=== PATIENT | male | born 1985 | race American Indian/Alaskan Native ===

== ENCOUNTER 2016-08-08 06:10 | Inpatient (IN) | payer MEDICAID, OTHER ==
[2016-08-08] MEDS ORDERED: Sodium Chloride 0.9% 1,000 ML IV STA ×2 (07:38→09:04)
[2016-08-08] MEDS ORDERED: Alum-Mag Hydrox-Simethicone Susp (30 mL) PO STA (07:39)
[2016-08-08 07:52] LABS: BASO % 0.1 % (0.0-2.0); EOS # 0.1 K/uL (0.0-0.7); EOS % 0.4 % (0.0-4.0); HEMATOCRIT 42.9 % (35.0-51.0); LYMPH # 0.4 K/uL (1.0-4.3); LYMPH % 2.9 % (20.0-40.0); MEAN CELL VOLUME 70.3 fL (80.0-94.0); MEAN CORPUSCULAR HEMOGLOBIN 22.2 pg (27.0-31.0); MEAN CORPUSCULAR HGB CONC 31.5 g/dL (33.0-37.0); MEAN PLATELET VOLUME 9.4 fL (7.2-11.7); MONO # 0.4 K/uL (0.0-0.8); MONO % 3.1 % (0.0-10.0); PLATELET COUNT 239 K/uL (130-400); RED CELL DISTRIBUTION WIDTH 13.8 % (11.5-14.5); WHITE BLOOD COUNT 13.3 K/uL (4.8-10.8)
[2016-08-08 08:04] LABS: CHLORIDE 103 mmol/L (98-107); POTASSIUM 3.2 mmol/L (3.6-5.2); SODIUM 141 mmol/L (132-148)
[2016-08-08] MEDS ORDERED: Aluminum Hydroxide/Magnesium Hydroxide Susp (30 mL) ONE (08:05)
[2016-08-08] MEDS ORDERED: Sodium Chloride 0.9% 1,000 ML ONE ×2 (08:05→09:14)
[2016-08-08 08:06] LABS: ALKALINE PHOSPHATASE 104 U/L (38-126); AST/SGOT 23 U/L (17-59); BILIRUBIN,TOTAL 0.9 mg/dL (0.2-1.3); BLOOD UREA NITROGEN 11 mg/dL (9-20); CARBON DIOXIDE 29 mmol/L (22-30); GFR AFRICAN-AMERICAN > 60; TOTAL PROTEIN 7.4 g/dL (6.3-8.3)
[2016-08-08 08:07] LABS: ALCOHOL SERUM < 10 mg/dl (0-10); ALT/SGPT 21 U/L (21-72); CALCIUM 9.2 mg/dl (8.6-10.4); GLUCOSE,RANDOM 113 mg/dL (75-110)
--- NOTE | 2016-08-08 08:29 | C.PDOC ---
History Of Present Illness 31 y/o M c history of chronic back pain radiating down leg p/w vomiting since this morning. Patient states he has had this vomiting before and has been told that it is from gastric ulcers but he states he has never followed up with gastroenterology and is on no medication for it. Denies fever, chills, chest pain, dyspnea, diarrhea, dysuria. Time Seen by Provider: 08/08/16 07:15 Chief Complaint (Nursing): Abdominal Pain Past Medical History Vital Signs: Last Vital Signs Temp 99.4 F 08/08/16 11:35 Pulse 83 08/08/16 11:35 Resp 18 08/08/16 11:35 BP 101/64 08/08/16 11:35 Pulse Ox 99 08/08/16 11:35 - Medical History PMH: Denies: Diabetes Family History: States: No Known Family Hx - Social History Hx Tobacco Use: Yes Hx Alcohol Use: No Hx Substance Use: Yes - Immunization History Hx Tetanus Toxoid Vaccination: Yes Hx Influenza Vaccination: Yes Hx Pneumococcal Vaccination: Yes Review Of Systems Except As Marked, All Systems Reviewed And Found Negative. Constitutional: Negative for: Fever Cardiovascular: Negative for: Chest Pain Physical Exam - Physical Exam Additional Physical Exam Comments: Constitutional: No acute distress. Head: Normocephalic. Atraumatic. Neck: Supple. Cardiovascular: Regular rate. Radial pulse 2+ bilaterally. Chest: No tenderness. Respiratory: Clear to auscultation bilaterally. GI: Soft. Epigastric tenderness without rebound or guarding. Nondistended. Back: No CVA tenderness. Musculoskeletal: No tenderness or swelling of extremities. Skin: No rash. Neurologic: Alert, no focal deficit. ED Course And Treatment - Laboratory Results Result Diagrams: 08/08/16 07:47 08/08/16 07:47 O2 Sat by Pulse Oximetry: 99 Medical Decision Making Medical Decision Making: Check labs, hydrate, Zofran, pepcid, maalox, reassess. ED OBSERVATION Date of observation admission: 08/08/16 Time of observation admission: 08:40 - Observation admission statement Patient is being placed in observation because:: abdominal pain - Goals of Observation Goals of observation are:: monitoring; pending CT - Progress Note Progress Note: [address] 1240 FINDINGS: Lower thorax: No acute findings. ABDOMEN: Liver: Unremarkable. No mass. Gallbladder and bile ducts: Unremarkable. No calcified stones. No ductal dilation. Pancreas: Hypodense nodule of 1.5 x 2.5 cm between head of pancreas and gastroduodenal junction. No mass. No ductal dilation. Spleen: Unremarkable. No splenomegaly. Adrenals: Unremarkable. No mass. Kidneys and ureters: 1 cm left renal cyst. No hydronephrosis. Stomach and bowel: No gastric wall thickening or edema. No dilatation of small or large bowel. No mucosal thickening. Appendix: Normal. PELVIS: Bladder: Under distended. No mass. Reproductive: Unremarkable as visualized. ABDOMEN and PELVIS: Intraperitoneal space: Unremarkable. No free air. No significant fluid collection. Bones/joints: No acute fracture. Soft tissues: Unremarkable. Vasculature: Unremarkable. No abdominal aortic aneurysm. Lymph nodes: No enlarged lymph nodes. IMPRESSION: 1. Indeterminate nodule between proximal duodenum and head of pancreas, differential considerations of lymph node, duodenal diverticulum. 2. No acute inflammation or intestinal obstruction Patient with bandemia as well as evidence of UTI on UA. Will start on Ciprofloxacin, hydrate, and keep for observation. Dr. Morocho accepts patient to hospitalist service. Disposition Discussed With : Ilan Morocho Doctor Will See Patient In The: Hospital - Disposition Disposition: HOSPITALIZED Disposition Time: 12:42 Condition: FAIR - Clinical Impression Clinical Impression: Vomiting, Bandemia, UTI (urinary tract infection)
[2016-08-08 08:57] LABS: NEUTROPHIL 83 % (50-75); TOTAL CELLS COUNTED 100
[2016-08-08] MEDS ORDERED: Piperacill/Tazo 4.5gm in Dex 4.5 GM/100 ML BAG IVPB STA (09:04)
[2016-08-08] MEDS ORDERED: Iodixanol 320 MG/ML 100 ML BOTTLE IV ONE (09:47)
[2016-08-08 10:06] LABS: RBC URINE 2 /hpf (0-3); URINE BILIRUBIN NEGATIVE (NEGATIVE); URINE BLOOD NEGATIVE (NEGATIVE); URINE COLOR Amber (YELLOW); URINE GLUCOSE (UA) NORMAL (Normal); URINE KETONE 1+ mg/dL (NEGATIVE); URINE LEUKOCYTE ESTERASE NEG Leu/uL (Negative); URINE PROTEIN 2+ mg/dL (NEGATIVE); WBC URINE 7 /hpf (0-5)
[2016-08-08 10:56] LABS: VENOUS BLOOD GAS BASE EXCESS -0.4 mmol/L (0.0-2.0); VENOUS BLOOD GAS PCO2 42 mmHg (40-60); VENOUS BLOOD PH 7.38 (7.32-7.43)
--- NOTE | 2016-08-08 12:42 | CT ---
EXAM: CT Abdomen and Pelvis With Intravenous Contrast CLINICAL HISTORY: 31 years old, male; Pain; Abdominal pain; Other: Ucler; Patient HX: Ulcer; Additional info: Abdominal pain, vomiting TECHNIQUE: Axial computed tomography images of the abdomen and pelvis with intravenous contrast. This CT exam was performed using one or more of the following dose reduction techniques: automated exposure control, adjustment of the mA and/or kV according to patient size, and/or use of iterative reconstruction technique. Coronal and sagittal reformatted images were created and reviewed. CONTRAST: 100 mL of visipaque administered intravenously. EXAM DATE/TIME: 08/08/2016 8:39 AM COMPARISON: No relevant prior studies available. FINDINGS: Lower thorax: No acute findings. ABDOMEN: Liver: Unremarkable. No mass. Gallbladder and bile ducts: Unremarkable. No calcified stones. No ductal dilation. Pancreas: Hypodense nodule of 1.5 x 2.5 cm between head of pancreas and gastroduodenal junction. No mass. No ductal dilation. Spleen: Unremarkable. No splenomegaly. Adrenals: Unremarkable. No mass. Kidneys and ureters: 1 cm left renal cyst. No hydronephrosis. Stomach and bowel: No gastric wall thickening or edema. No dilatation of small or large bowel. No mucosal thickening. Appendix: Normal. PELVIS: Bladder: Under distended. No mass. Reproductive: Unremarkable as visualized. ABDOMEN and PELVIS: Intraperitoneal space: Unremarkable. No free air. No significant fluid collection. Bones/joints: No acute fracture. Soft tissues: Unremarkable. Vasculature: Unremarkable. No abdominal aortic aneurysm. Lymph nodes: No enlarged lymph nodes. IMPRESSION: 1. Indeterminate nodule between proximal duodenum and head of pancreas, differential considerations of lymph node, duodenal diverticulum. 2. No acute inflammation or intestinal obstruction.
[2016-08-08] MEDS ORDERED: Ciprofloxacin 400mg/200ml D5W 400 MG/200 ML BAG IVPB STA (13:00)
[2016-08-08] MEDS ORDERED: Ciprofloxacin 400mg/200ml D5W 400 MG/200 ML BAG IVPB ONE (13:23)
[2016-08-08] MEDS ORDERED: Potassium Chloride 20 mEq ER Tab PO ONE (15:15)
[2016-08-08 15:36] LABS: MAGNESIUM 1.8 mg/dL (1.6-2.3)
[2016-08-08] MEDS: Sodium Chloride 0.9% 1,000 ML IV SCH (16:15)
[2016-08-08 18:08] LABS: RBC URINE 5 /hpf (0-3); URINE BACTERIA RARE (<OCC); URINE BILIRUBIN NEGATIVE (NEGATIVE); URINE BLOOD NEGATIVE (NEGATIVE); URINE COLOR Yellow (YELLOW); URINE GLUCOSE (UA) NORMAL (Normal); URINE KETONE NEGATIVE (NEGATIVE); URINE LEUKOCYTE ESTERASE NEG Leu/uL (Negative); URINE PROTEIN NEGATIVE (NEGATIVE); WBC URINE < 1 /hpf (0-5)
--- NOTE | 2016-08-08 18:18 | CP.PCM.HP ---
<DeviOctavia L. - Last Filed: 08/08/16 18:01> History of Present Illness - History of Present Illness History of Present Illness: CC: abdominal and back pain with vomiting Patient with PMH of gastric ulcer 8 years ago (which he signed out of the hospital AMA for) comes to the ER after 2 days of abdominal and low back pain. Patient started vomiting this morning after drinking orange juice and decided to come to the ER. Patient describes that the vomit first looked like orange juice and then became brown/ green and bitter in taste. Patient has had some cough, phlegm, and sweats for the past 5 days. Two days ago patient started to have diarrhea after eating [place] food. Patient describes the abdominal pain as squeezing and tight starting in the epigastric region and moving downward. He rates the pain 7/10. Patient has had low back pain for 2 years after an accident. Patient unsure if the back pain is related to the new abdominal pain. Patient went to [place] one month ago and got a new tattoo. Patient denies headache, blurry vision, sore throat, dysuria, urinary frequency, or rash. PMD: none PMhx: gastric ulcer about 8 years ago PSurg: none Social hx: marijuana- 5-10 blunts/ day for 20 years cigarettes: 2-3/ day for 20 years alcohol: hx of heavy drinking which stopped about 3 years ago drugs: none Meds: none Famhx: Mom of TB, Brother- HTN, Aunt- Brain cancer Allergies: NKDA Present on Admission - Present on Admission Any Indicators Present on Admission: No Review of Systems - Constitutional Constitutional: Excessive Sweating, Fatigue, Night Sweats, Weakness. absent: Chills - EENT Eyes: absent: Blurred Vision, Change in Vision, Diplopia Nose/Mouth/Throat: absent: Nasal Congestion, Sore Throat - Cardiovascular Cardiovascular: absent: Chest Pain, Leg Edema, Palpitations, Pedal Edema - Respiratory Respiratory: Cough (minimal cough with phlegm ), Pain on Inspiration (pain in abdomen on deep inspiration ). absent: Dyspnea - Gastrointestinal Gastrointestinal: Abdominal Pain, Change in Bowel Habits, Diarrhea, Vomiting Additional comments: vomiting x 10 times - Genitourinary Genitourinary: absent: Change in Urinary Stream, Difficulty Urinating, Hematuria , Urinary Frequency, Urinary Hesitance - Musculoskeletal Musculoskeletal: Back Pain, Stiffness. absent: Joint Swelling - Integumentary Integumentary: absent: Lesions, Rash, Swelling - Neurological Neurological: absent: Abnormal Gait, Confusion, Headaches, Syncope - Hematologic/Lymphatic Hematologic: absent: Easy Bleeding, Easy Bruising Past Patient History - Infectious Disease Hx of Infectious Diseases: None - Past Social History Smoking Status: Heavy Smoker > 10 Cigarettes Daily - MUSCULOSKELETAL/RHEUMATOLOGICAL Hx Back Pain: Yes - PSYCHIATRIC Hx Substance Use: Yes - SURGICAL HISTORY Hx Surgeries: No - ANESTHESIA Hx Anesthesia: No Hx Anesthesia Reactions: No Meds Allergies/Adverse Reactions: Allergies Allergy/AdvReac Type Severity Reaction Status Date / Time No Known Allergies Allergy Verified 06/15/15 23:01 Physical Exam - Constitutional Appears: Non-toxic, No Acute Distress - Head Exam Head Exam: ATRAUMATIC, NORMAL INSPECTION, NORMOCEPHALIC - Eye Exam Eye Exam: EOMI, Normal appearance, PERRL - Neck Exam Neck exam: Positive for: Normal Inspection - Respiratory Exam Respiratory Exam: Clear to Auscultation Bilateral, NORMAL BREATHING PATTERN. absent: Rales, Rhonchi, Wheezes, Stridor - Cardiovascular Exam Cardiovascular Exam: REGULAR RHYTHM, RRR. absent: Gallop, Rubs - GI/Abdominal Exam GI & Abdominal Exam: Normal Bowel Sounds, Soft. absent: Distended, Firm, Guarding, Tenderness - Extremities Exam Extremities exam: Positive for: full ROM, normal inspection. Negative for: pedal edema, tenderness - Back Exam Back exam: NORMAL INSPECTION, paraspinal tenderness, tenderness. absent: rash noted - Neurological Exam Neurological exam: Alert, Oriented x3 - Psychiatric Exam Psychiatric exam: Normal Affect, Normal Mood - Skin Skin Exam: Normal Color, Warm Results - Vital Signs Recent Vital Signs: Last Vital Signs Temp 101.6 F H 08/08/16 16:00 Pulse 88 08/08/16 16:00 Resp 20 08/08/16 16:00 BP 104/71 08/08/16 16:00 Pulse Ox 98 08/08/16 16:00 - Labs Result Diagrams: 08/08/16 07:47 08/08/16 07:47 Labs: Laboratory Results - last 24 hr 08/08/16 08/08/16 08/08/16 09:33 10:45 17:37 pO2 45 VBG pH 7.38 VBG pCO2 42 VBG HCO3 24.1 VBG Total CO2 26.1 VBG O2 Sat (Calc) 84.5 H VBG Base Excess -0.4 L VBG Potassium 3.3 L Sodium 139.0 Chloride 107.0 Glucose 99 Lactate 1.3 Magnesium 1.9 Venous Blood Potassium 3.3 L Urine Color [place] Urine Clarity Hazy Urine pH 6.0 Ur Specific [place] 1.027 Urine Protein 2+ H Urine Glucose (UA) Normal Urine Ketones 1+ H Urine Blood Negative Urine Nitrate Negative Urine Bilirubin Negative Urine Urobilinogen 4.0 Ur Leukocyte Esterase Neg Urine WBC (Auto) 7 H Urine RBC (Auto) 2 Ur Squamous Epith Cells < 1 Hyaline Casts 3-5 H Assessment & Plan (1) Abdominal pain Assessment and Plan: Clear liquid diet Blood culture Hep panel HIV test Lipase Pepcid CT with oral contrast Status: Acute (2) Vomiting Assessment and Plan: NS 125 cc/hr CLD Zofran 4 mg IVP Q6H PRN Status: Acute (3) UTI (urinary tract infection) Assessment and Plan: Urine culture Repeat UA Cipro 400 mg BID Status: Acute (4) Bandemia Assessment and Plan: Urine Culture Blood Culture CXray Status: Acute (5) Prophylactic measure Assessment and Plan: Pepcid 20 mg IVP Q12 SCDs Status: Acute Decision To Admit - . Bed Request Type: Regular <Luis Nava - Last Filed: 08/10/16 13:55> Results - Vital Signs Recent Vital Signs: Last Vital Signs Temp 98.3 F 08/10/16 08:00 Pulse 61 08/10/16 08:00 Resp 20 08/10/16 08:00 BP 119/75 08/10/16 08:00 Pulse Ox 99 08/10/16 08:00 - Labs Result Diagrams: 08/10/16 09:03 08/10/16 09:03 Labs: Laboratory Results - last 24 hr 08/09/16 08/10/16 08/10/16 17:11 09:03 09:03 WBC 6.5 RBC 5.96 H Hgb 13.1 Hct 41.4 MCV 69.5 L MCH 21.9 L MCHC 31.5 L RDW 13.7 Plt Count 265 MPV 10.2 Neut % (Auto) 60.4 Lymph % (Auto) 29.5 Mclennan % (Auto) 7.8 Eos % (Auto) 1.4 Baso % (Auto) 0.9 Neut # 3.9 Lymph # 1.9 Mclennan # 0.5 Eos # 0.1 Baso # 0.1 Sodium 138 Potassium 3.6 Chloride 100 Carbon Dioxide 27 Anion Gap 15 BUN 2 L Creatinine 0.7 L Est GFR ( Amer) > 60 Est GFR (Non-Af Amer) > 60 Random Glucose 92 Calcium 8.9 Phosphorus 2.7 Magnesium 1.9 Total Bilirubin 0.7 AST 21 ALT 23 Alkaline Phosphatase 83 Total Protein 7.3 Albumin 3.6 Globulin 3.7 Albumin/Globulin Ratio 1.0 Stool Occult Blood Positive H Attending/Attestation - Attestation I have personally seen and examined this patient.: Yes I have fully participated in the care of the patient.: Yes I have reviewed all pertinent clinical information: Yes Notes (Text): Patient seen and examined with the resident. Agree with residents evaluation, assessment and plan. (1) Abdominal pain ? unclear etiology with nausea, vomiting and diarrhea Epigastric pain in setting of history of ulcer disease no perforation seen (2) Vomiting that is causing dehydration (3) Bandemia (4) Dehydration. (5) ? UTI repeat UA possible contaminant
[2016-08-08] MEDS ORDERED: Iohexol 240 (50 ml) PO ONE (19:15)
[2016-08-09] MEDS: Ciprofloxacin 400mg/200ml D5W 400 MG/200 ML BAG IVPB SCH ×2 (00:36→13:31)
[2016-08-09] MEDS ORDERED: Ciprofloxacin 400mg/200ml D5W 400 MG/200 ML BAG IVPB SCH (03:00)
--- NOTE | 2016-08-09 09:33 | CP.PCM.PN ---
Subjective - Date & Time of Evaluation Date of Evaluation: 08/09/16 Time of Evaluation: 09:25 - Subjective Subjective: Medical Attending Note Follow-up: Epigastric Pain, History of Ulcer, Smoker, Urinary Tract Infection Patient seen and examined. Patient reports two days ago, he had [place] food and had diarrhea. Patient unclear if he saw blood or not because he was eatting "red tips". Patient reports he is a heavy smoker, reports he was stressed because he got just and concerned about to pay for the costs. Patient reports at [facility]? he had endoscopy about 8 years ago where he has ulcer and another abnormalities? but he got scared and left against medical advice and has not seen a doctor because he has been without insurance. Patient reports he has low back pain, which he takes Motrin and has received a shot in the back. Patient denies fever since coming up from the emergency room, denies chills, denies chest pain, denies cough, denies nausea, reports epigastric pain in the base of his belly, denies vomitting, reports diarrhea, 1 episode this morning, reports stool appears brown, denies BRBPR, denies dysuria, denies hematuria and reports body aches and pains. Objective - Vital Signs/Intake and Output Vital Signs (last 24 hours): Temp Pulse Resp BP Pulse Ox 98.8 F 81 20 112/61 99 08/09/16 08:00 08/09/16 08:00 08/09/16 08:00 08/09/16 08:00 08/09/16 08:00 Intake and Output: 08/09/16 08/09/16 06:59 18:59 Intake Total 1620 Balance 1620 - Medications Medications: Current Medications Acetaminophen (Tylenol 325mg Tab) 650 mg PO Q6 PRN PRN Reason: Fever >100.4 F Last Admin: 08/08/16 18:23 Dose: 650 mg Famotidine (Pepcid) 20 mg IVP Q12 [facility] Last Admin: 08/08/16 21:26 Dose: 20 mg Sodium Chloride (Sodium Chloride 0.9%) 1,000 mls @ 150 mls/hr IV .Q6H40M [facility] Last Admin: 08/08/16 16:15 Dose: 150 mls/hr Ciprofloxacin (Cipro 400mg/200ml Dsw) 400 mg in 200 mls @ 133 mls/hr IVPB Q12H [facility] Last Admin: 08/09/16 00:36 Dose: 133 mls/hr Ondansetron HCl (Zofran Inj) 4 mg IVP Q6H PRN PRN Reason: Nausea/Vomiting Pneumococcal Polyvalent Vaccine (Pneumovax 23 Vaccine) 0.5 ml IM .ONCE ONE Stop: 08/10/16 10:01 - Constitutional Appears: Non-toxic, No Acute Distress - Head Exam Head Exam: NORMAL INSPECTION - Eye Exam Eye Exam: EOMI - ENT Exam ENT Exam: Mucous Membranes Moist - Respiratory Exam Respiratory Exam: Clear to Ausculation Bilateral, NORMAL BREATHING PATTERN. absent: Rales, Rhonchi, Wheezes - Cardiovascular Exam Cardiovascular Exam: REGULAR RHYTHM, +S1, +S2 - GI/Abdominal Exam GI & Abdominal Exam: Soft, Tenderness (epigastric, mild), Normal Bowel Sounds. absent: Guarding, Rigid, Mass, Rebound - Back Exam Back Exam: absent: CVA tenderness (L), CVA tenderness (R) - Neurological Exam Neurological Exam: Alert, Awake, Oriented x3 - Psychiatric Exam Psychiatric exam: Normal Affect, Normal Mood - Skin Skin Exam: Dry, Normal Color, Warm Assessment and Plan (1) SIRS (systemic inflammatory response syndrome) Assessment & Plan: Febrile (101.6F) WBC: 13.6 Bands: 10% pending Blood culture and Urine culture Ciprofloxacin 400mg IV Q 12hour (active since 08/09/16) Pending blood work today Status: Acute (2) Epigastric abdominal pain Assessment & Plan: CT Abdomen/Pelvis (08/08/16): indetermine nodule (1.5 X2.5 cm) between proximal duodendum and head of pancreas, differential considerations of lymph node, duodenal diverticulum. No acute inflammation or intestinal obstruction Pending report of CT abdomen/Pelvis GI (Dr. Hall) consult-->history of gastric ulcer, epigastric abdomen pain, current smoker, and questionable blood stool Etiologies: Gastritis vs Gastroenteritis Patient is current smoker, history of ulcer, but also recently ate [place] food about two days ago. Patient reports abnormality associated in prior endoscopy 8 years ago, but left against medical advice. Ordered for occult blood, ova and parasite, stool culture Protonix 40mg IV q daily Status: Acute (3) History of gastric ulcer Assessment & Plan: History of gastric ulcer Endoscopy about 8 years ago Current smoker Status: Chronic (4) UTI (urinary tract infection) Assessment & Plan: 08/08/16 UA: pyuria; UA: hematuria pending urine culture Status: Acute (5) Diarrhea Assessment & Plan: pending stool ova and parasite, culture, and occult blood Patient recently had slovenian food about 2 days ago Status: Acute (6) Prophylactic measure Assessment & Plan: Pepcid 20mg IV Q 12hour for GI ppx Zofran 4mg IV Q6 hour PRN nausea SCDS b/l NS 150 cc/hr Status: Acute
[2016-08-09] MEDS: Sodium Chloride 0.9% 1,000 ML IV SCH ×3 (10:23→18:00)
--- NOTE | 2016-08-09 10:56 | CP.PCM.CON ---
History of Present Illness - History of Present Illness History of Present Illness: CC: Abdominal pain HPI: GI Service consult requested on this 31 year old man admitted with acute abdominal pain, fever, and leukocytosis. Patient developed upper and mid abdominal pain, severe, 2 days ago. He has been very stressed emotionally because he recently , and has been smoking a lot of marijuana. He also takes Motrin as needed for chronic back pains, but not every day and he uses it sparingly. Patient has presented several occasions to [facility] ER for abdominal pains. Patient reports diarrhea for the past 2 days, and diaphoresis without chills. He lost weight, decreased appetite. Patient was told he had ulcers on EGD 8 years ago at [facility] but then signed out AMA, and "never took care of it". CT on this admission shows nodular lesion at junction of duodenum and head of pancreas measuring 2 cm, and differentila dx by radiologist is lymph node or duodenal diverticulum. patient denies bright red rectal bleeding or melena. Review of Systems - Constitutional Constitutional: Excessive Sweating, Night Sweats, Weight Loss - EENT Eyes: absent: Change in Vision - Cardiovascular Cardiovascular: absent: Chest Pain - Respiratory Respiratory: absent: Cough, Dyspnea - Gastrointestinal Gastrointestinal: As Per HPI - Genitourinary Genitourinary: absent: Difficulty Urinating, Dysuria - Musculoskeletal Musculoskeletal: Back Pain - Integumentary Integumentary: absent: Bleeding Lesions, Jaundice - Neurological Neurological: absent: Vertigo - Psychiatric Psychiatric: Anxiety - Endocrine Endocrine: Fatigue. absent: Palpitations - Hematologic/Lymphatic Hematologic: absent: Easy Bleeding Past Patient History - Infectious Disease Hx of Infectious Diseases: None - Past Medical History & Family History Past Medical History?: Yes - Past Social History Smoking Status: Heavy Smoker > 10 Cigarettes Daily Alcohol: None Drugs: Cannabis - CARDIAC Hx Cardiac Disorders: No - PULMONARY Hx Respiratory Disorders: No - MUSCULOSKELETAL/RHEUMATOLOGICAL Hx Back Pain: Yes - PSYCHIATRIC Hx Substance Use: Yes - SURGICAL HISTORY Hx Surgeries: No - ANESTHESIA Hx Anesthesia: No Hx Anesthesia Reactions: No Meds Allergies/Adverse Reactions: Allergies Allergy/AdvReac Type Severity Reaction Status Date / Time No Known Allergies Allergy Verified 06/15/15 23:01 - Medications Medications: Current Medications Acetaminophen (Tylenol 325mg Tab) 650 mg PO Q6 PRN PRN Reason: Fever >100.4 F Last Admin: 08/08/16 18:23 Dose: 650 mg Famotidine (Pepcid) 20 mg IVP Q12 [facility] Last Admin: 08/09/16 10:23 Dose: 20 mg Sodium Chloride (Sodium Chloride 0.9%) 1,000 mls @ 150 mls/hr IV .Q6H40M [facility] Last Admin: 08/09/16 10:23 Dose: 150 mls/hr Ciprofloxacin (Cipro 400mg/200ml Dsw) 400 mg in 200 mls @ 133 mls/hr IVPB Q12H [facility] Last Admin: 08/09/16 00:36 Dose: 133 mls/hr Ondansetron HCl (Zofran Inj) 4 mg IVP Q6H PRN PRN Reason: Nausea/Vomiting Pneumococcal Polyvalent Vaccine (Pneumovax 23 Vaccine) 0.5 ml IM .ONCE ONE Stop: 08/10/16 10:01 Physical Exam - Constitutional Appears: Well, No Acute Distress - Head Exam Head Exam: ATRAUMATIC, NORMOCEPHALIC - Eye Exam Eye Exam: Normal appearance. absent: Scleral icterus - ENT Exam ENT Exam: Normal Exam - Neck Exam Neck exam: Positive for: Normal Inspection - Respiratory Exam Respiratory Exam: Clear to Auscultation Bilateral - Cardiovascular Exam Cardiovascular Exam: REGULAR RHYTHM - GI/Abdominal Exam GI & Abdominal Exam: Soft, Tenderness. absent: Distended, Mass, Organomegaly ( Epigastric tenderness), Rebound - Rectal Exam Rectal Exam: Deferred - Extremities Exam Extremities exam: Positive for: normal inspection - Back Exam Back exam: NORMAL INSPECTION - Neurological Exam Neurological exam: Oriented x3 - Psychiatric Exam Psychiatric exam: Anxious Results - Vital Signs Recent Vital Signs: Last Vital Signs Temp 98.8 F 08/09/16 08:00 Pulse 81 08/09/16 08:00 Resp 20 08/09/16 08:00 BP 112/61 08/09/16 08:00 Pulse Ox 99 08/09/16 08:00 - Labs Result Diagrams: 08/08/16 07:47 08/08/16 07:47 Labs: Laboratory Results - last 24 hr 08/08/16 08/08/16 08/08/16 10:45 17:37 17:52 pO2 45 VBG pH 7.38 VBG pCO2 42 VBG HCO3 24.1 VBG Total CO2 26.1 VBG O2 Sat (Calc) 84.5 H VBG Base Excess -0.4 L VBG Potassium 3.3 L Sodium 139.0 Chloride 107.0 Glucose 99 Lactate 1.3 Magnesium 1.9 Lipase Venous Blood Potassium 3.3 L Urine Color Yellow Urine Clarity Clear Urine pH 7.0 Ur Specific [place] 1.053 H Urine Protein Negative Urine Glucose (UA) Normal Urine Ketones Negative Urine Blood Negative Urine Nitrate Negative Urine Bilirubin Negative Urine Urobilinogen 2.0 Ur Leukocyte Esterase Neg Urine WBC (Auto) < 1 Urine RBC (Auto) 5 H Urine Bacteria Rare Hepatitis A IgM Ab Hep Bs Antigen Hep B Core IgM Ab Hepatitis C Antibody HIV 1&2 Antibody Screen 08/09/16 08/09/16 08/09/16 07:11 07:11 07:11 pO2 VBG pH VBG pCO2 VBG HCO3 VBG Total CO2 VBG O2 Sat (Calc) VBG Base Excess VBG Potassium Sodium Chloride Glucose Lactate Magnesium Lipase 48 Venous Blood Potassium Urine Color Urine Clarity Urine pH Ur Specific [place] Urine Protein Urine Glucose (UA) Urine Ketones Urine Blood Urine Nitrate Urine Bilirubin Urine Urobilinogen Ur Leukocyte Esterase Urine WBC (Auto) Urine RBC (Auto) Urine Bacteria Hepatitis A IgM Ab Negative Hep Bs Antigen Negative Hep B Core IgM Ab Negative Hepatitis C Antibody Negative HIV 1&2 Antibody Screen Negative Assessment & Plan (1) Abdominal pain Assessment and Plan: Suspect Duodenal ulcer, recurrent. CT finding may represent duodenal ulcer or diverticulum, lymph node less likely with this clinical presentation Rec: Protonix, check for h Pylori, upper GI series vs. EGD (elective). Need to monitor for perforation of ulcer Status: Acute (2) Diarrhea Assessment and Plan: perhaps fever related to gastroenteritis. No other source of infection apparent Rec: Check stool studies, monitor CBC. Status: Acute - Date & Time Date: 08/09/16 Time: 11:02
[2016-08-09 12:23] LABS: BASO % 0.3 % (0.0-2.0); EOS # 0.1 K/uL (0.0-0.7); EOS % 1.7 % (0.0-4.0); HEMATOCRIT 36.5 % (35.0-51.0); LYMPH # 1.7 K/uL (1.0-4.3); LYMPH % 23.6 % (20.0-40.0); MEAN CELL VOLUME 70.3 fL (80.0-94.0); MEAN CORPUSCULAR HGB CONC 31.4 g/dL (33.0-37.0); MEAN PLATELET VOLUME 9.5 fL (7.2-11.7); MONO # 0.5 K/uL (0.0-0.8); MONO % 7.2 % (0.0-10.0); NRBC % 0.1 % (0.0-2.0); RED CELL DISTRIBUTION WIDTH 13.9 % (11.5-14.5)
--- NOTE | 2016-08-09 12:26 | RAD ---
HISTORY: infection COMPARISON: No prior. TECHNIQUE: Chest PA and lateral FINDINGS: LUNGS: No active pulmonary disease. PLEURA: No significant pleural effusion identified. No pneumothorax apparent. CARDIOVASCULAR: Normal. OSSEOUS STRUCTURES: No significant abnormalities. VISUALIZED UPPER ABDOMEN: Normal. OTHER FINDINGS: None. IMPRESSION: No active disease.
[2016-08-09 12:53] LABS: CHLORIDE 100 mmol/L (98-107)
[2016-08-09 12:54] LABS: POTASSIUM 2.9 mmol/L (3.6-5.2); SODIUM 133 mmol/L (132-148)
[2016-08-09 12:56] LABS: ALB/GLOB RATIO 0.9 (1.0-2.1); ALKALINE PHOSPHATASE 68 U/L (38-126); ALT/SGPT 21 U/L (21-72); AST/SGOT 17 U/L (17-59); BILIRUBIN,TOTAL 0.5 mg/dL (0.2-1.3); BLOOD UREA NITROGEN 4 mg/dL (9-20); CARBON DIOXIDE 25 mmol/L (22-30); GFR AFRICAN-AMERICAN > 60; TOTAL PROTEIN 6.1 g/dL (6.3-8.3)
[2016-08-09 12:57] LABS: CALCIUM 7.8 mg/dl (8.6-10.4); GLUCOSE,RANDOM 87 mg/dL (75-110); MAGNESIUM 1.9 mg/dL (1.6-2.3); PHOSPHOROUS 2.5 mg/dL (2.5-4.5)
--- NOTE | 2016-08-09 13:00 | CT ---
PROCEDURE: CT Abdomen and Pelvis without intravenous contrast HISTORY: vomiting/ abdominal pain COMPARISON: 08/08/2016 at 10:05 a.m. TECHNIQUE: Without contrast.. Contrast Dose: 0 Radiation dose: Total exam DLP = 319.22 mGy-cm. This CT exam was performed using one or more of the following dose reduction techniques: Automated exposure control, adjustment of the mA and/or kV according to patient size, and/or use of iterative reconstruction technique. FINDINGS: LOWER THORAX: Unremarkable. LIVER: Unremarkable. No gross lesion or ductal dilatation. GALLBLADDER AND BILE DUCTS: High attenuation within gallbladder lumen consistent with vicarious excretion of intravenous contrast material administered early of same date. PANCREAS: Evaluation of pancreas limited by the absence of intravenous contrast. No gross abnormality. Please note that the nodular density seen adjacent to the pancreatic head on earlier examination is not evident because of the lack of intravenous contrast. In retrospect, on earlier examination, there is suggestion of dulce hepatis lymphadenopathy as well as this likely peripancreatic lymph node. Nonspecific findings. SPLEEN: Unremarkable. ADRENALS: Unremarkable. No mass. KIDNEYS AND URETERS: Unremarkable. No hydronephrosis. No solid mass. VASCULATURE: Unremarkable. No aortic aneurysm. BOWEL: No bowel obstruction. No abnormal bowel loops are identified. APPENDIX: Unremarkable. Normal appendix. PERITONEUM: Unremarkable. No free fluid. No free air. LYMPH NODES: Caudad having tear uterine a moment no retroperitoneal or pelvic lymphadenopathy. Suspected peripancreatic and dulce hepatis lymphadenopathy as above. BLADDER: Nondistended REPRODUCTIVE: Normal prostate BONES: No acute fracture. OTHER FINDINGS: None. IMPRESSION: Limited examination due to lack of intravenous contrast administration. No gross abnormality identified. Please note that in review of earlier examination of the same date, there is possible dulce hepatis lymphadenopathy as well as likely peripancreatic lymphadenopathy as previously described. ,
[2016-08-09] MEDS ORDERED: Potassium Chloride 20 mEq/15 ml LIQ UD PO ONE ×3 (13:29→16:00)
[2016-08-09] MEDS: Pantoprazole 40 mg EC Tab PO SCH (13:31)
[2016-08-09] MEDS: Potassium & Sodium Phosphate PO SCH ×2 (14:29→17:54)
--- NOTE | 2016-08-09 21:08 | CP.PCM.PN ---
Subjective - Date & Time of Evaluation Date of Evaluation: 08/09/16 Time of Evaluation: 10:00 - Subjective Subjective: PGY2 on medicine Dr. Pereira service: Pt seen and examined at bedside this morning. Pt said his pain is better now and no more n/v. He was able to pass watery stool today and inquired about able to advance diet and have some nuggets. Objective - Vital Signs/Intake and Output Vital Signs (last 24 hours): Temp Pulse Resp BP Pulse Ox 99.0 F 67 20 109/72 98 08/09/16 15:15 08/09/16 15:15 08/09/16 15:15 08/09/16 15:15 08/09/16 15:15 - Medications Medications: Current Medications Acetaminophen (Tylenol 325mg Tab) 650 mg PO Q6 PRN PRN Reason: Fever >100.4 F Last Admin: 08/08/16 18:23 Dose: 650 mg Famotidine (Pepcid) 20 mg IVP Q12 [facility] Last Admin: 08/09/16 10:23 Dose: 20 mg Sodium Chloride (Sodium Chloride 0.9%) 1,000 mls @ 150 mls/hr IV .Q6H40M [facility] Last Admin: 08/09/16 18:00 Dose: 150 mls/hr Ciprofloxacin (Cipro 400mg/200ml Dsw) 400 mg in 200 mls @ 133 mls/hr IVPB Q12H [facility] Last Admin: 08/09/16 13:31 Dose: 133 mls/hr Ondansetron HCl (Zofran Inj) 4 mg IVP Q6H PRN PRN Reason: Nausea/Vomiting Pantoprazole Sodium (Protonix Ec Tab) 40 mg PO DAILY [facility] Last Admin: 08/09/16 13:31 Dose: 40 mg Pneumococcal Polyvalent Vaccine (Pneumovax 23 Vaccine) 0.5 ml IM .ONCE ONE Stop: 08/10/16 10:01 Potassium Chloride (K-Dur 20 Meq Er Tab) 20 meq PO ONCE ONE Stop: 08/09/16 22:01 Potassium Phos/Sodium Phos (Neutra-Phos) 1 pkt PO TID [facility] Last Admin: 08/09/16 17:54 Dose: 1 pkt - Labs Labs: 08/09/16 12:07 08/09/16 12:07 - Constitutional Appears: Non-toxic, No Acute Distress - Head Exam Head Exam: NORMAL INSPECTION, NORMOCEPHALIC - Eye Exam Eye Exam: Normal appearance Pupil Exam: NORMAL ACCOMODATION - ENT Exam ENT Exam: Mucous Membranes Moist - Respiratory Exam Respiratory Exam: Clear to Ausculation Bilateral, NORMAL BREATHING PATTERN. absent: Wheezes - Cardiovascular Exam Cardiovascular Exam: REGULAR RHYTHM, +S1, +S2. absent: Gallop, Rubs - GI/Abdominal Exam GI & Abdominal Exam: Soft, Tenderness (epigastric), Normal Bowel Sounds - Neurological Exam Neurological Exam: Alert, Awake, Oriented x3 - Psychiatric Exam Psychiatric exam: Normal Mood - Skin Skin Exam: Intact
[2016-08-09] MEDS ORDERED: Potassium Chloride 20 mEq ER Tab PO ONE (22:00)
[2016-08-10] MEDS: Ciprofloxacin 400mg/200ml D5W 400 MG/200 ML BAG IVPB SCH ×2 (00:24→13:10)
[2016-08-10] MEDS: Sodium Chloride 0.9% 1,000 ML IV SCH ×5 (00:24→22:18)
--- NOTE | 2016-08-10 08:01 | CP.PCM.PN ---
<Shaka Pepper - Last Filed: 08/10/16 07:58> Subjective - Date & Time of Evaluation Date of Evaluation: 08/10/16 Time of Evaluation: 08:00 - Subjective Subjective: PGY3 on medicine Dr. Pereira service: Pt seen and examined at bedside this morning. Afebrile last night. Pt reports watery stool still but improved from yesterday. His epigastric pain also improved somewhat. Tolerating liquid diet, denied n/v. No acute events overnight per RN. Objective - Vital Signs/Intake and Output Vital Signs (last 24 hours): Temp Pulse Resp BP Pulse Ox 98.7 F 69 20 102/61 100 08/10/16 00:00 08/10/16 00:00 08/10/16 00:00 08/10/16 00:00 08/10/16 00:00 Intake and Output: 08/10/16 08/10/16 06:59 18:59 Intake Total 1150 Balance 1150 - Medications Medications: Current Medications Acetaminophen (Tylenol 325mg Tab) 650 mg PO Q6 PRN PRN Reason: Fever >100.4 F Last Admin: 08/08/16 18:23 Dose: 650 mg Famotidine (Pepcid) 20 mg IVP Q12 [facility] Last Admin: 08/09/16 22:37 Dose: 20 mg Sodium Chloride (Sodium Chloride 0.9%) 1,000 mls @ 150 mls/hr IV .Q6H40M [facility] Last Admin: 08/10/16 00:24 Dose: 150 mls/hr Ciprofloxacin (Cipro 400mg/200ml Dsw) 400 mg in 200 mls @ 133 mls/hr IVPB Q12H [facility] Last Admin: 08/10/16 00:24 Dose: 133 mls/hr Ondansetron HCl (Zofran Inj) 4 mg IVP Q6H PRN PRN Reason: Nausea/Vomiting Pantoprazole Sodium (Protonix Ec Tab) 40 mg PO DAILY [facility] Last Admin: 08/09/16 13:31 Dose: 40 mg Pneumococcal Polyvalent Vaccine (Pneumovax 23 Vaccine) 0.5 ml IM .ONCE ONE Stop: 08/10/16 10:01 Potassium Phos/Sodium Phos (Neutra-Phos) 1 pkt PO TID [facility] Last Admin: 08/09/16 17:54 Dose: 1 pkt - Labs Labs: 08/09/16 12:07 08/09/16 12:07 - Constitutional Appears: Non-toxic, No Acute Distress - Head Exam Head Exam: NORMOCEPHALIC - Eye Exam Eye Exam: Normal appearance - ENT Exam ENT Exam: Mucous Membranes Moist - Respiratory Exam Respiratory Exam: Clear to Ausculation Bilateral, NORMAL BREATHING PATTERN. absent: Rhonchi, Wheezes - Cardiovascular Exam Cardiovascular Exam: REGULAR RHYTHM, +S1, +S2. absent: Gallop, Rubs - GI/Abdominal Exam GI & Abdominal Exam: Soft, Tenderness (mild epigastric), Normal Bowel Sounds - Neurological Exam Neurological Exam: Alert, Awake, Oriented x3 - Psychiatric Exam Psychiatric exam: Normal Mood - Skin Skin Exam: Dry, Intact Assessment and Plan - Assessment and Plan (Free Text) Assessment: (1) SIRS (systemic inflammatory response syndrome) Assessment & Plan: 08/09: Afebrile today. Febrile (101.6F) WBC: 13.6 Bands: 10% on 08/08. Blood and urine culture negative for now (24 hours). Ciprofloxacin 400mg IV Q 12hour (active since 08/09/16) Status: Acute (2) Epigastric abdominal pain Assessment & Plan: 08/10: Protonix 40mg PO daily per GI. FOBT positive. Stool parasite and ova studies were negative. Continue liquid diet. Will have GI series on Thursday per GI. Will f/u repeat FOBT. F/U H.pylori as per GI. CT Abdomen/Pelvis (08/08/16): indetermine nodule (1.5 X2.5 cm) between proximal duodendum and head of pancreas, differential considerations of lymph node, duodenal diverticulum. No acute inflammation or intestinal obstruction Pending report of CT abdomen/Pelvis GI (Dr. Hall) consult-->history of gastric ulcer, epigastric abdomen pain, current smoker, and questionable blood stool Etiologies: Gastritis vs Gastroenteritis Patient is current smoker, history of ulcer, but also recently ate [place] food about two days ago. Patient reports abnormality associated in prior endoscopy 8 years ago, but left against medical advice. Ordered for occult blood, ova and parasite, stool culture Protonix 40mg IV q daily Status: Acute (3) History of gastric ulcer Assessment & Plan: History of gastric ulcer Endoscopy about 8 years ago Current smoker Status: Chronic (4) UTI (urinary tract infection) Assessment & Plan: 08/09: urine culture negative. 08/08/16 UA: pyuria; UA: hematuria Status: Acute (5) Diarrhea Assessment & Plan: FOBT positive, ova parasite was negative Patient recently had [place] food about 2 days ago Status: Acute (6) Prophylactic measure Assessment & Plan: Pepcid 20mg IV Q 12hour for GI ppx Zofran 4mg IV Q6 hour PRN nausea SCDS b/l NS 150 cc/hr Status: Acute <Marce Pereira V - Last Filed: 08/10/16 17:01> Objective - Vital Signs/Intake and Output Vital Signs (last 24 hours): Temp Pulse Resp BP Pulse Ox 98.0 F 63 20 126/85 99 08/10/16 15:00 08/10/16 15:00 08/10/16 15:00 08/10/16 15:00 08/10/16 15:00 - Medications Medications: Current Medications Acetaminophen (Tylenol 325mg Tab) 650 mg PO Q6 PRN PRN Reason: Fever >100.4 F Last Admin: 08/08/16 18:23 Dose: 650 mg Famotidine (Pepcid) 20 mg IVP Q12 [facility] Last Admin: 08/10/16 10:07 Dose: 20 mg Sodium Chloride (Sodium Chloride 0.9%) 1,000 mls @ 150 mls/hr IV .Q6H40M [facility] Last Admin: 08/10/16 14:54 Dose: Not Given Ciprofloxacin (Cipro 400mg/200ml Dsw) 400 mg in 200 mls @ 133 mls/hr IVPB Q12H [facility] Last Admin: 08/10/16 13:10 Dose: 133 mls/hr Ondansetron HCl (Zofran Inj) 4 mg IVP Q6H PRN PRN Reason: Nausea/Vomiting Pantoprazole Sodium (Protonix Ec Tab) 40 mg PO DAILY [facility] Last Admin: 08/10/16 10:07 Dose: 40 mg Potassium Phos/Sodium Phos (Neutra-Phos) 1 pkt PO TID [facility] Last Admin: 08/10/16 13:10 Dose: 1 pkt Assessment and Plan (1) SIRS (systemic inflammatory response syndrome) Status: Acute (2) Epigastric abdominal pain Status: Acute (3) History of gastric ulcer Status: Chronic (4) UTI (urinary tract infection) Status: Acute (5) Diarrhea Status: Acute (6) Prophylactic measure Status: Acute Attending/Attestation - Attestation I have personally seen and examined this patient.: Yes I have fully participated in the care of the patient.: Yes I have reviewed all pertinent clinical information, including history, physical exam and plan: Yes Notes (Text): Patient seen, examined, and case discussed with day-time resident. Patient seen at bedside this morning with . Patient denies acute complaints. Discussed with patient' stool occult blood is positive. Per GI, patient to be NPO for EGD tomorrow f/u Hpylori. Ordered for renal US r/o bladder mass given painless hematuria and smoking history Assessment and Plan (1) SIRS (systemic inflammatory response syndrome) Assessment & Plan: Febrile (101.6F) WBC: 13.6 Bands: 10% on admission Blood culture (08/08/16): no growth after 24hours X2 Urine culture (08/08/16): no Growth Stool Ova and parasite (08/09/16): No ova and parasite; pending stool culture Ciprofloxacin 400mg IV Q 12hour (active since 08/09/16) No subsequent bandemia or leukocytosis Status: Acute (2) Epigastric abdominal pain Assessment & Plan: CT Abdomen/Pelvis (08/08/16): indetermine nodule (1.5 X2.5 cm) between proximal duodendum and head of pancreas, differential considerations of lymph node, duodenal diverticulum. No acute inflammation or intestinal obstruction CT Abdomen/Pevlis (08/09/16): possible dulce hepatic lymphadenopathy as well as likely peripancreatic lymphadenopathy GI (Dr. Hall) consult on board + stool occult blood Review of history: Patient is current smoker, history of ulcer, but also recently ate [place] food about two days ago. Patient reports abnormality associated in prior endoscopy 8 years ago, but left against medical advice. Protonix 40mg IV q daily NPO after midnight for EGD on 08/11/16 Status: Acute (3) History of gastric ulcer Assessment & Plan: History of gastric ulcer Endoscopy about 8 years ago Current smoker +occult blood NPO after midnight for EGD on 08/11/16 Status: Chronic (4) UTI (urinary tract infection) Assessment & Plan: 08/09/16: Urine culture (08/08/16): no Growth; order for renal us r/o bladder mass (hx of smoking and painless hematuria 08/08/16 UA: pyuria; UA: hematuria pending urine culture Status: Acute (5) Diarrhea Assessment & Plan: Negative stool ova and parasite, pending culture, and +occult blood Patient recently had [place] food about 2 days ago Continue to monitor Status: Acute (6) Prophylactic measure Assessment & Plan: Pepcid 20mg IV Q 12hour for GI ppx Zofran 4mg IV Q6 hour PRN nausea SCDS b/l NS 150 cc/hr NPO after midnight for EGD 08/11/16 Status: Acute
--- NOTE | 2016-08-10 09:24 | CP.PCM.PN ---
Subjective - Date & Time of Evaluation Date of Evaluation: 08/10/16 Time of Evaluation: 09:22 - Subjective Subjective: less epigastric pain Loose BMs Anemic, microcytic Wants to eat Objective - Vital Signs/Intake and Output Vital Signs (last 24 hours): Temp Pulse Resp BP Pulse Ox 98.3 F 61 20 119/75 99 08/10/16 08:00 08/10/16 08:00 08/10/16 08:00 08/10/16 08:00 08/10/16 08:00 Intake and Output: 08/10/16 08/10/16 06:59 18:59 Intake Total 1150 Balance 1150 - Medications Medications: Current Medications Acetaminophen (Tylenol 325mg Tab) 650 mg PO Q6 PRN PRN Reason: Fever >100.4 F Last Admin: 08/08/16 18:23 Dose: 650 mg Famotidine (Pepcid) 20 mg IVP Q12 [facility] Last Admin: 08/09/16 22:37 Dose: 20 mg Sodium Chloride (Sodium Chloride 0.9%) 1,000 mls @ 150 mls/hr IV .Q6H40M [facility] Last Admin: 08/10/16 00:24 Dose: 150 mls/hr Ciprofloxacin (Cipro 400mg/200ml Dsw) 400 mg in 200 mls @ 133 mls/hr IVPB Q12H [facility] Last Admin: 08/10/16 00:24 Dose: 133 mls/hr Ondansetron HCl (Zofran Inj) 4 mg IVP Q6H PRN PRN Reason: Nausea/Vomiting Pantoprazole Sodium (Protonix Ec Tab) 40 mg PO DAILY [facility] Last Admin: 08/09/16 13:31 Dose: 40 mg Pneumococcal Polyvalent Vaccine (Pneumovax 23 Vaccine) 0.5 ml IM .ONCE ONE Stop: 08/10/16 10:01 Potassium Phos/Sodium Phos (Neutra-Phos) 1 pkt PO TID [facility] Last Admin: 08/09/16 17:54 Dose: 1 pkt - Labs Labs: 08/09/16 12:07 08/09/16 12:07 - Constitutional Appears: Well - Head Exam Head Exam: NORMOCEPHALIC - Neck Exam Neck Exam: Normal Inspection - Respiratory Exam Respiratory Exam: NORMAL BREATHING PATTERN - Cardiovascular Exam Cardiovascular Exam: REGULAR RHYTHM - GI/Abdominal Exam GI & Abdominal Exam: Soft. absent: Tenderness Assessment and Plan (1) Abdominal pain Assessment & Plan: Suspect recurrent peptic ulcer rec: advance diet, continue PPI. EGD tomorrow. Will defer UGI series. Check h Pylori Status: Acute (2) Diarrhea Assessment & Plan: Awaiting stool studies Status: Acute
[2016-08-10 09:26] LABS: BASO # 0.1 K/uL (0.0-0.2); BASO % 0.9 % (0.0-2.0); EOS # 0.1 K/uL (0.0-0.7); EOS % 1.4 % (0.0-4.0); HEMATOCRIT 41.4 % (35.0-51.0); LYMPH # 1.9 K/uL (1.0-4.3); LYMPH % 29.5 % (20.0-40.0); MEAN CELL VOLUME 69.5 fL (80.0-94.0); MEAN CORPUSCULAR HEMOGLOBIN 21.9 pg (27.0-31.0); MEAN CORPUSCULAR HGB CONC 31.5 g/dL (33.0-37.0); MEAN PLATELET VOLUME 10.2 fL (7.2-11.7); MONO # 0.5 K/uL (0.0-0.8); MONO % 7.8 % (0.0-10.0); NRBC % 0.1 % (0.0-2.0); RED CELL DISTRIBUTION WIDTH 13.7 % (11.5-14.5); WHITE BLOOD COUNT 6.5 K/uL (4.8-10.8)
[2016-08-10 09:55] LABS: CHLORIDE 100 mmol/L (98-107); POTASSIUM 3.6 mmol/L (3.6-5.2); SODIUM 138 mmol/L (132-148)
[2016-08-10 09:57] LABS: CARBON DIOXIDE 27 mmol/L (22-30); GFR AFRICAN-AMERICAN > 60
[2016-08-10 09:58] LABS: ALKALINE PHOSPHATASE 83 U/L (38-126); ALT/SGPT 23 U/L (21-72); AST/SGOT 21 U/L (17-59); BILIRUBIN,TOTAL 0.7 mg/dL (0.2-1.3); CALCIUM 8.9 mg/dl (8.6-10.4); GLUCOSE,RANDOM 92 mg/dL (75-110); PHOSPHOROUS 2.7 mg/dL (2.5-4.5); TOTAL PROTEIN 7.3 g/dL (6.3-8.3)
[2016-08-10 09:59] LABS: MAGNESIUM 1.9 mg/dL (1.6-2.3)
[2016-08-10] MEDS ORDERED: Pneumococcal 23-Valent Vaccine IM ONE (10:00)
[2016-08-10 10:01] LABS: BLOOD UREA NITROGEN 2 mg/dL (9-20)
[2016-08-10] MEDS: Potassium & Sodium Phosphate PO SCH ×3 (10:07→18:20)
[2016-08-10] MEDS: Pantoprazole 40 mg EC Tab PO SCH (10:07)
[2016-08-11] MEDS: Ciprofloxacin 400mg/200ml D5W 400 MG/200 ML BAG IVPB SCH ×2 (00:24→12:50)
[2016-08-11 08:17] LABS: BASO % 0.4 % (0.0-2.0); EOS # 0.1 K/uL (0.0-0.7); EOS % 1.5 % (0.0-4.0); HEMATOCRIT 43.2 % (35.0-51.0); LYMPH # 1.6 K/uL (1.0-4.3); LYMPH % 30.3 % (20.0-40.0); MEAN CORPUSCULAR HEMOGLOBIN 22.1 pg (27.0-31.0); MEAN CORPUSCULAR HGB CONC 31.5 g/dL (33.0-37.0); MEAN PLATELET VOLUME 9.7 fL (7.2-11.7); MONO # 0.6 K/uL (0.0-0.8); MONO % 10.9 % (0.0-10.0); NRBC % 0.1 % (0.0-2.0); RED CELL DISTRIBUTION WIDTH 13.9 % (11.5-14.5); WHITE BLOOD COUNT 5.4 K/uL (4.8-10.8)
[2016-08-11 08:21] LABS: CHLORIDE 103 mmol/L (98-107)
[2016-08-11 08:25] LABS: BILIRUBIN,TOTAL 0.8 mg/dL (0.2-1.3); CARBON DIOXIDE 29 mmol/L (22-30); GFR AFRICAN-AMERICAN > 60; SODIUM 141 mmol/L (132-148)
[2016-08-11 08:26] LABS: ALKALINE PHOSPHATASE 77 U/L (38-126); ALT/SGPT 31 U/L (21-72); AST/SGOT 24 U/L (17-59); BLOOD UREA NITROGEN 4 mg/dL (9-20); CALCIUM 9.2 mg/dl (8.6-10.4); GLUCOSE,RANDOM 90 mg/dL (75-110); MAGNESIUM 1.9 mg/dL (1.6-2.3); PHOSPHOROUS 3.4 mg/dL (2.5-4.5); TOTAL PROTEIN 7.1 g/dL (6.3-8.3)
--- NOTE | 2016-08-11 09:49 | US ---
PROCEDURE: Ultrasound of the Kidneys HISTORY: r/o mass; former smoker and hematuria COMPARISON: CT abdomen and pelvis from 08/08/2016. TECHNIQUE: Nixon scale imaging ws performed. FINDINGS: RIGHT KIDNEY: Measures: 11.27 cm. Normal in size, contour and echogenicity. No stone, solid mass lesion or hydronephrosis visualized. LEFT KIDNEY: Measures: 11.13 cm. Normal in size, contour and echogenicity. No stone, solid mass lesion or hydronephrosis visualized. OTHER FINDINGS: None. IMPRESSION: Normal renal sonogram.
[2016-08-11] MEDS: Potassium & Sodium Phosphate PO SCH (12:55)
[2016-08-11] MEDS ORDERED: Lactated Ringer's 500 ML IV ONE ×2 (13:42)
[2016-08-11] MEDS ORDERED: Propofol 10 mg/ml Inj (20 ML) ONE ×2 (13:50→14:01)
[2016-08-11] MEDS ORDERED: Midazolam 2 MG/2 ML VIAL ONE (13:50)
[2016-08-11 16:49] VITALS: BP 121/75; PULSE 55; RESP 20; TEMP 98.1; O2SAT 99
--- NOTE | 2016-08-11 21:21 | CP.PCM.DIS ---
Provider - Provider Date of Admission: 08/10/16 16:09 Attending physician: Luis Nava MD Primary care physician: None Consults: GI- Dr. Hall Time Spent in preparation of Discharge (in minutes): 45 Diagnosis - Discharge Diagnosis (1) Epigastric abdominal pain Status: Acute Comment: EGD showed non bleeding gastropathy and duodenitis. Patient to continue Protonix 40mg PO Daily for 3 months and have an outpatient H. pylori stool antigen test. Hospital Course - Lab Results Lab Results: Most Recent Lab Values WBC 5.4 K/uL (4.8-10.8) 08/11/16 08:07 RBC 6.17 Mil/uL (4.40-5.90) H 08/11/16 08:07 Hgb 13.6 g/dL (12.0-18.0) 08/11/16 08:07 Hct 43.2 % (35.0-51.0) 08/11/16 08:07 MCV 70.0 fL (80.0-94.0) L 08/11/16 08:07 MCH 22.1 pg (27.0-31.0) L 08/11/16 08:07 MCHC 31.5 g/dL (33.0-37.0) L 08/11/16 08:07 RDW 13.9 % (11.5-14.5) 08/11/16 08:07 Plt Count 282 K/uL (130-400) 08/11/16 08:07 MPV 9.7 fL (7.2-11.7) 08/11/16 08:07 Neut % (Auto) 56.9 % (50.0-75.0) 08/11/16 08:07 Lymph % (Auto) 30.3 % (20.0-40.0) 08/11/16 08:07 Holt % (Auto) 10.9 % (0.0-10.0) H 08/11/16 08:07 Eos % (Auto) 1.5 % (0.0-4.0) 08/11/16 08:07 Baso % (Auto) 0.4 % (0.0-2.0) 08/11/16 08:07 Neut # 3.1 K/uL (1.8-7.0) 08/11/16 08:07 Lymph # 1.6 K/uL (1.0-4.3) 08/11/16 08:07 Holt # 0.6 K/uL (0.0-0.8) 08/11/16 08:07 Eos # 0.1 K/uL (0.0-0.7) 08/11/16 08:07 Baso # 0.0 K/uL (0.0-0.2) 08/11/16 08:07 Neutrophils % (Manual) 83 % (50-75) H 08/08/16 07:47 Band Neutrophils % 10 % (0-2) H 08/08/16 07:47 Lymphocytes % (Manual) 5 % (20-40) L 08/08/16 07:47 Monocytes % (Manual) 2 % (0-10) 08/08/16 07:47 Platelet Estimate Normal (NORMAL) 08/08/16 07:47 RBC Morphology Normal 08/08/16 07:47 pO2 45 mm/Hg (30-55) 08/08/16 10:45 VBG pH 7.38 (7.32-7.43) 08/08/16 10:45 VBG pCO2 42 mmHg (40-60) 08/08/16 10:45 VBG HCO3 24.1 mmol/L 08/08/16 10:45 VBG Total CO2 26.1 mmol/L (22-28) 08/08/16 10:45 VBG O2 Sat (Calc) 84.5 % (40-65) H 08/08/16 10:45 VBG Base Excess -0.4 mmol/L (0.0-2.0) L 08/08/16 10:45 VBG Potassium 3.3 mmol/L (3.6-5.2) L 08/08/16 10:45 Sodium 139.0 mmol/l (132-148) 08/08/16 10:45 Chloride 107.0 mmol/L (98-107) 08/08/16 10:45 Glucose 99 mg/dl (75-110) 08/08/16 10:45 Lactate 1.3 mmol/L (0.7-2.1) 08/08/16 10:45 Sodium 141 mmol/L (132-148) 08/11/16 08:07 Potassium 4.0 mmol/L (3.6-5.2) 08/11/16 08:07 Chloride 103 mmol/L (98-107) 08/11/16 08:07 Carbon Dioxide 29 mmol/L (22-30) 08/11/16 08:07 Anion Gap 13 (10-20) 08/11/16 08:07 BUN 4 mg/dL (9-20) L 08/11/16 08:07 Creatinine 0.8 MG/DL (0.8-1.5) 08/11/16 08:07 Est GFR ( Amer) > 60 08/11/16 08:07 Est GFR (Non-Af Amer) > 60 08/11/16 08:07 Random Glucose 90 mg/dL (75-110) 08/11/16 08:07 Calcium 9.2 mg/dl (8.6-10.4) 08/11/16 08:07 Phosphorus 3.4 mg/dL (2.5-4.5) 08/11/16 08:07 Magnesium 1.9 mg/dL (1.6-2.3) 08/11/16 08:07 Total Bilirubin 0.8 mg/dL (0.2-1.3) 08/11/16 08:07 AST 24 U/L (17-59) 08/11/16 08:07 ALT 31 U/L (21-72) 08/11/16 08:07 Alkaline Phosphatase 77 U/L (38-126) 08/11/16 08:07 Total Protein 7.1 g/dL (6.3-8.3) 08/11/16 08:07 Albumin 3.6 g/dL (3.5-5.0) 08/11/16 08:07 Globulin 3.5 gm/dL (2.2-3.9) 08/11/16 08:07 Albumin/Globulin Ratio 1.0 (1.0-2.1) 08/11/16 08:07 Lipase 48 U/L (23-300) 08/09/16 07:11 Venous Blood Potassium 3.3 mmol/L (3.6-5.2) L 08/08/16 10:45 Urine Color Yellow (YELLOW) 08/08/16 17:52 Urine Clarity Clear (Clear) 08/08/16 17:52 Urine pH 7.0 (5.0-8.0) 08/08/16 17:52 Ur Specific [place] 1.053 (1.003-1.030) H 08/08/16 17:52 Urine Protein Negative mg/dL (NEGATIVE) 08/08/16 17:52 Urine Glucose (UA) Normal mg/dL (Normal) 08/08/16 17:52 Urine Ketones Negative mg/dL (NEGATIVE) 08/08/16 17:52 Urine Blood Negative (NEGATIVE) 08/08/16 17:52 Urine Nitrate Negative (NEGATIVE) 08/08/16 17:52 Urine Bilirubin Negative (NEGATIVE) 08/08/16 17:52 Urine Urobilinogen 2.0 mg/dL (0.2-1.0) 08/08/16 17:52 Ur Leukocyte Esterase Neg Jason/uL (Negative) 08/08/16 17:52 Urine WBC (Auto) < 1 /hpf (0-5) 08/08/16 17:52 Urine RBC (Auto) 5 /hpf (0-3) H 08/08/16 17:52 Ur Squamous Epith Cells < 1 /hpf (0-5) 08/08/16 09:33 Urine Bacteria Rare (<OCC) 08/08/16 17:52 Hyaline Casts 3-5 /lpf (0-2) H 08/08/16 09:33 Stool Occult Blood Negative (NEGATIVE) 08/10/16 20:40 Stool H. pylori Ag Not detected (Not Detected) 08/09/16 17:11 Alcohol, Quantitative < 10 mg/dl (0-10) 08/08/16 07:47 H. pylori Source Stool 08/09/16 17:11 Hepatitis A IgM Ab Negative (NEGATIVE) 08/09/16 07:11 Hep Bs Antigen Negative (NEGATIVE) 08/09/16 07:11 Hep B Core IgM Ab Negative (NEGATIVE) 08/09/16 07:11 Hepatitis C Antibody Negative (NEGATIVE) 08/09/16 07:11 HIV 1&2 Antibody Screen Negative (NEGATIVE) 08/09/16 07:11 - Hospital Course Hospital Course: As per admission documentation: Patient with PMH of gastric ulcer 8 years ago (which he signed out of the hospital AMA for) comes to the ER after 2 days of abdominal and low back pain. Patient started vomiting this morning after drinking orange juice and decided to come to the ER. Patient describes that the vomit first looked like orange juice and then became brown/ green and bitter in taste. Patient has had some cough, phlegm, and sweats for the past 5 days. Two days ago patient started to have diarrhea after eating [place] food. Patient describes the abdominal pain as squeezing and tight starting in the epigastric region and moving downward. He rates the pain 7/10. Patient has had low back pain for 2 years after an accident. Patient unsure if the back pain is related to the new abdominal pain. Patient went to [place] one month ago and got a new tattoo. Patient denies headache, blurry vision, sore throat, dysuria, urinary frequency, or rash. Patient was admitted for evaluation of abdominal pain with unclear etiology. Patient was found to have met SIRS crteria (febrile at temperature of 101.6 and WBC of 13.6). Patient was started on Cipro 400mg IV Q12h. Patients CT Abdomen/ Pelvis (08/08/16) showed indetermine nodule (1.5 X2.5 cm) between proximal duodendum and head of pancreas, differential considerations of lymph node, duodenal diverticulum. No acute inflammation or intestinal obstruction. Patient was evaluated by GI, Dr. Hall, and was suspected to have a duodenal ulcer, and possibly gastroenteritis. Patient underwent EGD on 08/11/16 that showed non- bleeding erosive gastropathy and duodenitis. Patient was advised to continue protonix 40mg PO Daily for erick dditional 3 months and have an H. Pylori stool antigen test done. Patient's stool studies , blood cultures and urine culture all showed no growth. Patient was sent home with Protonix 40mg and a Rx for Cipro 500mg PO Q12h for 7 days. The following discharge instructions were also given to the patient: Please discharge patient to home as per Dr. Nava. Please take the following new medications as prescribed: Protonix 40 mg by mouth daily Cipro 500 mg by mouth twice a day for 7 DAYS. Please follow up with the [facility] within 1 week of discharge. Please follow up with [facility] [employer] Dr. Hall within 1 week of discharge. Patient will need follow up abdominal CT in 3 months. Return to the emergency room if symptoms return. Instructions explained to patient, patient understands and agrees. Discharge Exam - Head Exam Head Exam: ATRAUMATIC, NORMAL INSPECTION, NORMOCEPHALIC - Eye Exam Pupil Exam: NORMAL ACCOMODATION, PERRL - ENT Exam ENT Exam: Mucous Membranes Moist - Respiratory Exam Respiratory Exam: Clear to PA & Lateral, NORMAL BREATHING PATTERN, UNREMARKABLE. absent: Rales, Rhonchi, Wheezes - Cardiovascular Exam Cardiovascular Exam: REGULAR RHYTHM, +S1, +S2 - GI/Abdominal Exam GI & Abdominal Exam: Normal Bowel Sounds, Soft, Unremarkable. absent: Distended , Firm, Tenderness - Neurological Exam Neurological exam: Alert, Oriented x3, Reflexes Normal - Psychiatric Exam Psychiatric exam: Normal Affect, Normal Mood - Skin Skin Exam: Dry, Intact, Normal Color, Warm Discharge Plan - Discharge Medications Prescriptions: Ciprofloxacin [Cipro] 500 mg PO Q12H #14 tab Pantoprazole Sodium [Protonix] 40 mg PO DAILY #30 ect - Follow Up Plan Condition: FAIR Disposition: HOME/ ROUTINE Instructions: Ciprofloxacin (By mouth), Pantoprazole (By mouth), Urinary Tract Infection in Men (DC), Acute Nausea and Vomiting (DC) Additional Instructions: Please discharge patient to home as per Dr. Nava. Please take the following new medications as prescribed: Protonix 40 mg by mouth daily Cipro 500 mg by mouth twice a day for 7 DAYS. Please follow up with the [facility] within 1 week of discharge. Please follow up with [facility] [employer] Dr. Hall within 1 week of discharge. Patient will need follow up abdominal CT in 3 months. Return to the emergency room if symptoms return. Instructions explained to patient, patient understands and agrees. Referrals: [facility] [place] [Provider Group] Rick Hall MD [Staff Provider] -
== END 2016-08-11 18:45 | disposition home or self-care (01) | DRG 182 ==
LOC: C.ER 06:10 → C.9OBSV 08:40 → OBSVTOIN 13:37 → C.9E 13:37 → INTOOBSV 13:37 → C.3T 14:57 → OBSVTOIN 08-10 16:09
PROVIDERS: ADMIT Internal Medicine; ATTEND Internal Medicine
PROC: 0DB68ZX Excision of Stomach, Via Natural or Artificial Opening Endoscopic, Diagnostic (ICD-10-PCS; 2016-08-11)
PROC: 0DB98ZX Excision of Duodenum, Via Natural or Artificial Opening Endoscopic, Diagnostic (ICD-10-PCS; principal; 2016-08-11 13:57)
DX: K29.80 Duodenitis without bleeding (principal); N39.0 Urinary tract infection, site not specified; D72.825 Bandemia; F17.200 Nicotine dependence, unspecified, uncomplicated; E86.0 Dehydration; K29.50 Unspecified chronic gastritis without bleeding; D64.9 Anemia, unspecified; Z87.11 Personal history of peptic ulcer disease; Z80.8 Family history of malignant neoplasm of other organs or systems; Z82.49 Family history of ischemic heart disease and other diseases of the circulatory system